=== PATIENT | female | born 1995 | race Caucasian/White ===

== ENCOUNTER 2021-11-07 11:40 | Emergency (ER) | payer MEDICAID ==
[2021-11-07 13:01] LABS: BILIRUBIN NEGATIVE (NEGATIVE); BLOOD 3+ Ery/uL (NEGATIVE); COLOR YELLOW (YELLOW); GLUCOSE (U) NORMAL (NORMAL); LEUKOCYTES 1+ Leu/uL (NEGATIVE); NITRITE NEGATIVE (NEGATIVE); PROTEIN 1+ mg/dL (NEGATIVE); UROBILINOGEN 0.2 mg/dL (0.2-1.0)
[2021-11-07 13:03] LABS: CLARITY SLIGHTLY HAZY (CLEAR)
[2021-11-07 13:56] LABS: BACTERIA 2+; MUCOUS MODERATE
[2021-11-07 13:59] LABS: BASOPHIL 0.1 % (0-2); EOSINOPHIL 0 % (0-5); HCT 38.2 % (37.0-47.0); HGB 12.8 g/dl (12.5-16.0); LYMPHOCYTE 7.4 % (15-48); MCHC 33.5 g/dL (32.0-36.0); MCV 89.5 fL (78.0-100.0); MONOCYTE 7.1 % (0-12); MPV 9.7 fL (6.0-9.5); NEUTROPHIL 84.7 % (41-80); NRBC 0; PLT 227 K/uL (150-400); RBC 4.27 M/uL (4.20-5.40); RDW 13.2 % (11.5-14.0); WBC 16.4 K/uL (4.0-10.5)
[2021-11-07 14:10] LABS: MONOSPOT (MONONUCLEOSIS) NEGATIVE (NEGATIVE)
[2021-11-07 14:29] LABS: ALBUMIN 3.7 g/dL (3.4-5.0); BILIRUBIN - TOTAL 0.8 mg/dL (0.2-1.0); BUN/CREAT RATIO (CALC) 12.3 RATIO; CREATININE 0.81 mg/dL (0.51-0.95); GLOBULIN (CALCULATION) 4.6 g/dL; POTASSIUM 3.6 mmol/L (3.5-5.1); TOTAL PROTEIN 8.3 g/dL (6.4-8.2)
[2021-11-07] MEDS ORDERED: AMOX TR-K CLV1 EAC4 PO (16:59)
== END 2021-11-07 17:10 | disposition home or self-care (01) ==
LOC: FER 11:40
PROVIDERS: Emergency Medicine
DX: J02.0 Streptococcal pharyngitis (principal); Z28.310 Unvaccinated for COVID-19; Z20.822 Contact with and (suspected) exposure to COVID-19
CPT/HCPCS: 36415; 70450; 70491; 80053; 81001; 84484; 85025; 86308; 87070; 87077; 87880; J1100; J7030; Q9967; U0002